=== PATIENT | male | born 1995 | race Caucasian/White ===

== ENCOUNTER → 2016-10-29 | Outpatient (CLI) | payer OTHER ==
[~2016-10-29] MED LIST: INSPMPNVLG; ZFRODT4 SL
[2016-10-29 13:20] LABS: ESTIMATED AVERAGE GLUCOSE 180 mg/dl; HA1C FLAG Normal (Normal)
[2016-10-29 13:23] LABS: THYROID STIMULATING HORMONE 3.59 uIu/ml (0.300-4.500)
== END | disposition home or self-care (01) ==
LOC: C.LAB1850 11:19
PROVIDERS: ATTEND Nurse Practitioner Adult Health
DX: E05.90 Thyrotoxicosis, unspecified without thyrotoxic crisis or storm (principal); E10.9 Type 1 diabetes mellitus without complications

== ENCOUNTER → 2016-12-23 | Outpatient (CLI) | payer OTHER ==
[2016-12-23 10:01] LABS: ESTIMATED AVERAGE GLUCOSE 169 mg/dl; HA1C FLAG Normal (Normal)
[2016-12-23 10:03] LABS: THYROID STIMULATING HORMONE 1.89 uIu/ml (0.300-4.500)
== END | disposition home or self-care (01) ==
LOC: C.LAB1850 08:18
PROVIDERS: ATTEND Nurse Practitioner Adult Health
DX: E05.90 Thyrotoxicosis, unspecified without thyrotoxic crisis or storm (principal); E10.9 Type 1 diabetes mellitus without complications

== ENCOUNTER → 2017-01-16 | Day surgery (SDC) | payer OTHER ==
[~2017-01-16] VITALS: Ht 180.3 cm; Wt 82.0 kg
[~2017-01-16] MED LIST changes: +COSYNTROPIN INJ 0.25 MCG in SYRINGE 4 ML IV SCH; +PATIENT'S ALLERGY INFO NEEDS ENTERED SCH
[2017-01-16 07:58] VITALS: BP 133/66; PULSE 72; TEMP 35.9; O2SAT 96; Ht 180.3 cm; Wt 82.0 kg
[2017-01-16 08:27] VITALS: BP 127/58; PULSE 93; TEMP 36.7; O2SAT 96
[2017-01-16 09:00] VITALS: BP 123/72; PULSE 77; TEMP 36.6; O2SAT 100
[2017-01-16 09:11] LABS: BUN/CREATININE RATIO 18.5 (10-20); CREATININE 1.1 mg/dl (0.60-1.40); POTASSIUM 4.7 mmol/L (3.5-5.1)
[2017-01-16 09:14] LABS: ALB/GLOB RATIO 1.1 (0.9-2)
[2017-01-16 09:35] VITALS: BP 121/68; PULSE 72; TEMP 36.6; O2SAT 100
== END | disposition home or self-care (01) ==
LOC: C.MTU 07:48 → EDSTATUS 08:00
PROVIDERS: ATTEND Internal Medicine Endocrinology, Diabetes & Metabolism
DX: E27.49 Other adrenocortical insufficiency (principal)

== ENCOUNTER → 2017-05-01 | Outpatient (CLI) | payer OTHER ==
[~2017-05-01] MED LIST changes: -COSYNTROPIN INJ 0.25 MCG in SYRINGE 4 ML IV SCH; -PATIENT'S ALLERGY INFO NEEDS ENTERED SCH; -ZFRODT4 SL
[2017-05-01 17:05] LABS: CHOLESTEROL/HDL RATIO 4.2; THYROID STIMULATING HORMONE 3.13 uIu/ml (0.300-4.500)
[2017-05-02 06:25] LABS: ESTIMATED AVERAGE GLUCOSE 180 mg/dl; HA1C FLAG Normal (Normal)
== END | disposition home or self-care (01) ==
LOC: C.LAB1850 15:32
PROVIDERS: ATTEND Nurse Practitioner Adult Health
DX: E10.9 Type 1 diabetes mellitus without complications (principal); E05.90 Thyrotoxicosis, unspecified without thyrotoxic crisis or storm

== ENCOUNTER → 2017-08-09 | Outpatient (CLI) | payer OTHER ==
[2017-08-09 12:51] LABS: HEMOGLOBIN A1C 7.7 % (4.5-5.6)
== END | disposition home or self-care (01) ==
LOC: C.LAB1850 11:46
PROVIDERS: ATTEND Nurse Practitioner Adult Health
DX: E10.9 Type 1 diabetes mellitus without complications (principal)

== ENCOUNTER → 2017-11-24 | Outpatient (CLI) | payer OTHER ==
--- NOTE | 2017-12-17 11:24 | CODING QUERY NO DIAGNOSIS ---
TREATMENT RENDERED WITHOUT A DIAGNOSIS To promote full compliance with coding requirements relating to patient care, physician participation is requested in all cases of funeral home director uncertainty. Please assist us with providing a diagnosis/symptom for the test(s) below: A diagnosis/symptom was not documented on your Order. A valid diagnosis/symptom is required to bill all insurances. Please remember that we are unable to code a diagnosis of rule out, probable, possible, questionable, or suspected. Tests that require a diagnosis: DOS: 11/26/17 * RIGHT EAR EXCISION DIAGNOSIS: Provider Signature: Date: Thank you Mona Cota [employer] Once completed, please kindly fax back to [phone] For questions please call [phone]
== END | disposition home or self-care (01) ==
LOC: C.PATHSPEC 11:41
PROVIDERS: ATTEND Plastic Surgery
DX: L72.11 Pilar cyst (principal)